=== PATIENT | male | born 1965 | race Caucasian/White ===

== ENCOUNTER 2017-08-08 15:54 | Inpatient (IN) | payer SELFPAY ==
[~2017-08-08] VITALS: Ht 177.8 cm; Wt 73.6 kg
[~2017-08-08 15:54] MED LIST: DEPA500T PO
[2017-08-08 16:00] VITALS: BP 136/86; PULSE 75; RESP 16; TEMP 98.9; O2SAT 96
--- NOTE | 2017-08-08 16:34 | PD ---
HPI Chief Complaint: Psychiatric Symptoms Time Seen by Provider: 16:28 Travel History International Travel<30 days: No Contact w/Intl Traveler<30days: No Traveled to known affect area: No History of Present Illness HPI Patient is a 52-year-old male presenting to the emergency Department under Delacruz act for psychiatric evaluation. Patient states that he has a history of bipolar disorder and seizures. He has been off of his lithium for several days and wants it refilled. He states that he's had several beers today, the beers "help him to not kill anybody". Patient admits to drinking alcohol on a daily basis. Patient appears intoxicated. He denies any visual or auditory hallucinations. PFSH Past Medical History Bipolar Disorder: Yes Anxiety: Yes Hypertension: Yes Neurologic: Yes (per [facility] info - bipolar) Psychiatric: Yes (bipolar/schizophrenia) Schizophrenia: Yes Seizures: Yes Past Surgical History Body Medical Devices: Patient is non-compliant with meds, thoughts not rational Social History Alcohol Use: Yes Tobacco Use: Yes Substance Use: No (Patient is non-compliant with meds, thoughts not rational) Allergies-Medications (Allergen,Severity, Reaction): Coded Allergies: No Known Allergies (Unverified , 07/01/16) Reported Meds & Prescriptions Reported Meds & Active Scripts Active Reported Depakote 500 mg (Divalproex Sodium) 500 Mg Tab 500 Tab PO BID Review of Systems Except as stated in HPI: all other systems reviewed are Neg Psychiatric: Positive: Mood Disorder, Substance Abuse, Homicidal Ideation Physical Exam Narrative GENERAL: Well-developed, well-nourished, intoxicated-appearing male. SKIN: Warm and dry. HEAD: Atraumatic. Normocephalic. EYES: Pupils equal and round. No scleral icterus. No injection or drainage. ENT: No nasal bleeding or discharge. Mucous membranes pink and moist. NECK: Trachea midline. No JVD. CARDIOVASCULAR: Regular rate and rhythm. RESPIRATORY: No accessory muscle use. Clear to auscultation. Breath sounds equal bilaterally. GASTROINTESTINAL: Abdomen soft, non-tender, nondistended. Hepatic and splenic margins not palpable. MUSCULOSKELETAL: Extremities without clubbing, cyanosis, or edema. No obvious deformities. NEUROLOGICAL: Awake and alert. No obvious cranial nerve deficits. Motor grossly within normal limits. Five out of 5 muscle strength in the arms and legs. Normal speech. PSYCHIATRIC: Appropriate mood and affect; insight and judgment impaired. Patient is aggressive verbally Data Data Last Documented VS Vital Signs Date Time Temp Pulse Resp B/P (MAP) Pulse Ox O2 Delivery O2 Flow Rate FiO2 08/08/17 16:00 98.9 75 16 136/86 (103) 96 Orders Orders Complete Blood Count With Diff (08/08/17 16:07) Comprehensive Metabolic Panel (08/08/17 16:07) Psych Screen (08/08/17 16:07) Drug Screen, Random Urine (08/08/17 16:07) Alcohol (Ethanol) (08/08/17 16:07) MDM Medical Decision Making Medical Screen Exam Complete: Yes Emergency Medical Condition: Yes Medical Record Reviewed: Yes Interpretation(s) Vital Signs Date Time Temp Pulse Resp B/P (MAP) Pulse Ox O2 Delivery O2 Flow Rate FiO2 08/08/17 16:00 98.9 75 16 136/86 (103) 96 Differential Diagnosis Mood disorder versus substance abuse versus metabolic abnormality versus homicidal ideations versus other Narrative Course Patient was seen and evaluated in the ambulance call. He is intoxicated per his own report. He smells of alcohol. He is being verbally aggressive stating that he's been here for 30 minutes and has not gotten his medication yet. Patient's vital signs are stable. Mental health screening discussed with the patient. Psychiatric screen ordered. Care of patient transferred to Rosanne SERRANO will determine patient's disposition Claudia Pat Aug 08, 2017 16:34
--- NOTE | 2017-08-08 16:53 | PD ---
Physical Exam Date Seen by Provider: Aug 08, 2017 Time Seen by Provider: 17:57 Narrative Patient was seen by POLINA Perdue. Please refer to her note for details of H&P. Data Data Last Documented VS Vital Signs Date Time Temp Pulse Resp B/P (MAP) Pulse Ox O2 Delivery O2 Flow Rate FiO2 08/08/17 16:00 98.9 75 16 136/86 (103) 96 Orders Orders Complete Blood Count With Diff (08/08/17 16:07) Comprehensive Metabolic Panel (08/08/17 16:07) Psych Screen (08/08/17 16:07) Drug Screen, Random Urine (08/08/17 16:07) Alcohol (Ethanol) (08/08/17 16:07) Labs Laboratory Tests Test 08/08/17 17:00 White Blood Count 4.6 TH/MM3 Red Blood Count 4.52 MIL/MM3 Hemoglobin 15.2 GM/DL Hematocrit 45.4 % Mean Corpuscular Volume 100.5 FL Mean Corpuscular Hemoglobin 33.5 PG Mean Corpuscular Hemoglobin Concent 33.4 % Red Cell Distribution Width 13.6 % Platelet Count 259 TH/MM3 Mean Platelet Volume 7.7 FL Neutrophils (%) (Auto) 46.0 % Lymphocytes (%) (Auto) 42.7 % Monocytes (%) (Auto) 9.3 % Eosinophils (%) (Auto) 1.4 % Basophils (%) (Auto) 0.6 % Neutrophils # (Auto) 2.1 TH/MM3 Lymphocytes # (Auto) 2.0 TH/MM3 Monocytes # (Auto) 0.4 TH/MM3 Eosinophils # (Auto) 0.1 TH/MM3 Basophils # (Auto) 0.0 TH/MM3 CBC Comment DIFF FINAL Differential Comment Blood Urea Nitrogen 5 MG/DL Creatinine 0.72 MG/DL Random Glucose 73 MG/DL Total Protein 7.3 GM/DL Albumin 3.6 GM/DL Calcium Level 8.5 MG/DL Alkaline Phosphatase 81 U/L Aspartate Amino Transf (AST/SGOT) 15 U/L Alanine Aminotransferase (ALT/SGPT) 17 U/L Total Bilirubin 0.3 MG/DL Sodium Level 140 MEQ/L Potassium Level 3.9 MEQ/L Chloride Level 106 MEQ/L Carbon Dioxide Level 28.2 MEQ/L Anion Gap 6 MEQ/L Estimat Glomerular Filtration Rate 114 ML/MIN Ethyl Alcohol Level 138 MG/DL [facility] Medical Record Reviewed: Yes Supervised Visit with MATIAS: No Differential Diagnosis bipolar disorder, drug induced mood disorder, substance abuse Narrative Course 52 yr old male here under BA. Labs have been reviewed and patient medically cleared for psych screen. Diagnosis Primary Impression: Bipolar disorder Qualified Codes: F31.9 - Bipolar disorder, unspecified Condition: Stable Rosanne Ellison Aug 08, 2017 16:53
[2017-08-08 17:20] LABS: AUTOMATED NEUTROPHIL # 2.1 TH/MM3 (1.8-7.7); BASOPHIL % 0.6 % (0.0-2.0); EOSINOPHIL # 0.1 TH/MM3 (0-0.4); EOSINOPHIL % 1.4 % (0.0-4.0); HEMATOCRIT 45.4 % (39.0-51.0); HEMO FLAGS DIFF FINAL; LYMPH % 42.7 % (9.0-44.0); MEAN CELL VOLUME 100.5 FL (80.0-100.0); MEAN CORPUSCULAR HEMOGLOBIN 33.5 PG (27.0-34.0); MEAN CORPUSCULAR HGB CONC 33.4 % (32.0-36.0); MONO % 9.3 % (0.0-8.0); PLATELET COUNT 259 TH/MM3 (150-450); RED BLOOD COUNT 4.52 MIL/MM3 (4.50-5.90); RED CELL DISTRIBUTION WIDTH 13.6 % (11.6-17.2); WHITE BLOOD COUNT 4.6 TH/MM3 (4.0-11.0)
[2017-08-08 17:38] LABS: ALT (GPT) 17 U/L (12-78); ANION GAP 6 MEQ/L (5-15); AST (GOT) 15 U/L (15-37); BICARBONATE 28.2 MEQ/L (21.0-32.0); CHLORIDE 106 MEQ/L (98-107); GLOMERULAR FILTRATION RATE 114 ML/MIN (>89); POTASSIUM 3.9 MEQ/L (3.5-5.1); SODIUM (NA) 140 MEQ/L (136-145)
[2017-08-08 17:40] LABS: ALCOHOL 138 MG/DL (0-5); ALKALINE PHOSPHATASE 81 U/L (45-117); BLOOD UREA NITROGEN 5 MG/DL (7-18); TOTAL BILIRUBIN ADULT 0.3 MG/DL (0.2-1.0)
[2017-08-08] MEDS ORDERED: LITH600C PO (18:26)
[2017-08-08] MEDS ORDERED: LORazepam 2 MG/ML VIAL IM ONE (19:30)
[2017-08-08 19:31] VITALS: BP 163/81; PULSE 72; RESP 20; O2SAT 100
[2017-08-08] MEDS ORDERED: FLUMAZENIL 0.5 MG/5 ML VIAL IV PUSH PRN (20:30)
[2017-08-08] MEDS ORDERED: LORazepam 1 MG TAB PO PRN (20:30)
[2017-08-08] MEDS ORDERED: LORazepam 2 MG/ML VIAL IV PUSH PRN ×4 (20:30)
[2017-08-08 20:50] VITALS: BP 170/97; PULSE 88; RESP 16; O2SAT 88
[2017-08-08 22:00] VITALS: BP 138/65; PULSE 83; RESP 19; O2SAT 93
[2017-08-09 02:07] VITALS: BP 142/73; PULSE 65; RESP 18; O2SAT 96
--- NOTE | 2017-08-09 09:40 | PD ---
History of Present Illness Chief Complaint: Psychiatric Symptoms Time Seen by Provider: 09:25 Travel History International Travel<30 Days: No Contact w/Intl Traveler<30days: No Known affected area: No Legal Status Legal Status: Delacruz Act Delacruz Act Signed By: POLINA Stout at [facility] History of Present Illness: History of Present Illness Patient is a 52-year-old male with history of bipolar disorder and alcohol abuse, seizures who presents to [facility] under a Delacruz act initiated by POLINA Stout at [facility]. The Delacruz act states " Landon has had recent increase in stressors. He is labile. He states he needs to go to the hospital. I can't take it anymore. I am done with everything. He is crying and very upset ". He informed the ED provider that he needed to have his lithium refilled and that he was drinking because " the beers "help me to not kill anybody". He appeared intoxicated and his BAL on arrival was 138. EMR reviewed. The patient has had 2 previous visits to ED for ETOH related issues with last visit in 2016. Patient is alert, oriented. he is irritable and quickly becomes agitated . He begins to hit himself on the head and slap his face. he is talking in a very loud tone a. States " I just want my fucking medication" but refuses to provide any other information and refuses to answer any questions. he then states " I know what I have to do cut my self". " If I was a fucking n I would be getting the help". He is not re directable and then states " I'm just not going to answer any questions". . PFSH Past Medical History Bipolar Disorder: Yes Anxiety: Yes Hypertension: Yes Neurologic: Yes (per [facility] info - bipolar) Psychiatric: Yes (bipolar/schizophrenia) Schizophrenia: Yes Seizures: Yes Past Surgical History Body Medical Devices: Patient is non-compliant with meds, thoughts not rational Psychiatric History Psychiatric History Hx Psychiatric Treatment: Bipolar disorder He deneis any inpatietn treatmetn. Follows up at [facility] outpatient History of Inpatient Treatment: No Guns or firearms in home: No (Did not answer) Social History Patient refused to provide any information Hx Alcohol Use: Yes Hx Tobacco Use: Yes Hx Substance Use: Yes (2 ppd smoker, ETOH--4 16oz. beers daily) Substance Use Type: Alcohol, Nicotine/Cigarettes Other Substances Used: Pt. states, "I'm an alcoholic, but I don't want treatment. I'm fine." Hx of Substance Use Treatment: No Family Psychiatric History Unknown Allergies-Medications (Allergen,Severity, Reaction): Coded Allergies: No Known Allergies (Unverified , 07/01/16) Reported Meds & Prescriptions Reported Meds & Active Scripts Active Reported [place] Carbonate 600 Mg Cap 600 Mg PO HS Review of Systems ROS Limitations: Uncooperative, Refused Exam Alert: Yes Landing: Person, Place Mood: Agitated Affect: Labile Speech: Clear (Loud, yelling, threatning) Eye Contact: Indirect Memory Intact: Comment (Unable to test) Hallucinations: Other (Does not appear to be) Delusions: No Suicidal: Ideation (Threatened to cut his arm) Homicidal: Ideation (Unable to assess as he refuses to answer) Insight/Judgement Poor. Poor MDM Medical Decision Making Medical Record Reviewed: Yes Assessment/Plan Patient is a 52-year-old male with history of bipolar disorder and alcohol abuse, seizures who presents to [facility] under a Delacruz act initiated by POLINA Stout at [facility]. The Delacruz act states " Landon has had recent increase in stressors. He is labile. He states he needs to go to the hospital. I can't take it anymore. I am done with everything. He is crying and very upset ". He informed the ED provider that he needed to have his lithium refilled and that he was drinking because " the beers "help me to not kill anybody". He appeared intoxicated and his BAL on arrival was 138. Patient exhibits agitation, lability of mood, threatens to cut himself demands to be given medication but refuses to answer any questions so that I can complete an evaluation. Patient at this time presents a risk to self or others and meets criteria for inpatient treatment for safety, further evaluation and stability . Orders Orders Complete Blood Count With Diff (08/08/17 16:07) Comprehensive Metabolic Panel (08/08/17 16:07) Psych Screen (08/08/17 16:07) Drug Screen, Random Urine (08/08/17 16:07) Alcohol (Ethanol) (08/08/17 16:07) Lorazepam Inj (Ativan Inj) (08/08/17 19:30) Restraints Violent (08/08/17:17) Alcohol Withdrawal Asmt-Ciwa ONCE (08/08/17 20:26) Flumazenil Inj (Romazicon Inj) (08/08/17 20:30) Lorazepam (Ativan) (08/08/17 20:30) Lorazepam Inj (Ativan Inj) (08/08/17 20:30) Lorazepam (Ativan) (08/08/17 20:30) Lorazepam Inj (Ativan Inj) (08/08/17 20:30) Lorazepam Inj (Ativan Inj) (08/08/17 20:30) Lorazepam Inj (Ativan Inj) (08/08/17 20:30) Diet Regular Basic (08/09/17 Breakfast) Admit To Inpatient (08/09/17 ) Basic Metabolic Panel (Bmp) (08/10/17 06:00) Lipid Profile (08/10/17 06:00) Hemoglobin (Hgb) A1c (08/10/17 06:00) Prolactin (08/10/17 06:00) Vital Signs (Pediatrics) [id number].E (08/09/17 08:49) Instruction (08/09/17 08:49) Electrocardiogram (08/09/17 ) Results Vital Signs Date Time Temp Pulse Resp B/P (MAP) Pulse Ox O2 Delivery O2 Flow Rate FiO2 08/09/17 02:07 65 18 142/73 (96) 96 Room Air 08/08/17 22:00 83 19 138/65 (89) 93 Room Air 08/08/17 20:50 88 16 170/97 (121) 88 Room Air 08/08/17 19:31 72 20 163/81 (108) 100 Room Air 08/08/17 16:00 98.9 75 16 136/86 (103) 96 Laboratory Tests Test 08/08/17 17:00 08/08/17 18:20 White Blood Count 4.6 Red Blood Count 4.52 Hemoglobin 15.2 Hematocrit 45.4 Mean Corpuscular Volume 100.5 Mean Corpuscular Hemoglobin 33.5 Mean Corpuscular Hemoglobin Concent 33.4 Red Cell Distribution Width 13.6 Platelet Count 259 Mean Platelet Volume 7.7 Neutrophils (%) (Auto) 46.0 Lymphocytes (%) (Auto) 42.7 Monocytes (%) (Auto) 9.3 Eosinophils (%) (Auto) 1.4 Basophils (%) (Auto) 0.6 Neutrophils # (Auto) 2.1 Lymphocytes # (Auto) 2.0 Monocytes # (Auto) 0.4 Eosinophils # (Auto) 0.1 Basophils # (Auto) 0.0 CBC Comment DIFF FINAL Differential Comment Blood Urea Nitrogen 5 Creatinine 0.72 Random Glucose 73 Total Protein 7.3 Albumin 3.6 Calcium Level 8.5 Alkaline Phosphatase 81 Aspartate Amino Transf (AST/SGOT) 15 Alanine Aminotransferase (ALT/SGPT) 17 Total Bilirubin 0.3 Sodium Level 140 Potassium Level 3.9 Chloride Level 106 Carbon Dioxide Level 28.2 Anion Gap 6 Estimat Glomerular Filtration Rate 114 Ethyl Alcohol Level 138 Urine Opiates Screen NEG Urine Barbiturates Screen NEG Urine Amphetamines Screen NEG Urine Benzodiazepines Screen NEG Urine Cocaine Screen NEG Urine Cannabinoids Screen NEG Diagnosis Primary Impression: Bipolar disorder Additional Impression: Alcohol abuse Admitting Information Admitting Physician Requests: Admit Condition: Stable Problem Qualifiers Primary Impression: Bipolar disorder Qualified Codes: F31.0 - Bipolar disorder, current episode hypomanic Kellen Claire Aug 09, 2017 09:40
[2017-08-09] MEDS ORDERED: MAGNESIUM HYDROXIDE SUSP 30 ML CUP PO PRN (10:00)
[2017-08-09] MEDS ORDERED: ALUMINUM/MAGNESIUM/SIMETH 30 ML CUP PO PRN (10:00)
[2017-08-09 12:54] VITALS: BP 189/96; PULSE 80; RESP 16; TEMP 96.2; O2SAT 97
[2017-08-09] MEDS ORDERED: LISINOPRIL 10 MG TAB PO ONE (13:00)
[2017-08-09] MEDS ORDERED: NAPROXEN 500 MG TAB PO ONE (13:00)
[2017-08-09] MEDS: NICOTINE 21 MG/24 HR PATCH T-DERMAL SCH (13:05)
[2017-08-09 14:00] VITALS: BP 160/88; PULSE 80; RESP 20; TEMP 98.8; O2SAT 97
[2017-08-09] MEDS: LORazepam 2 MG TAB PO PRN ×2 (17:30→23:46)
[2017-08-09] MEDS ORDERED: PHENYTOIN SODIUM 100 MG CAP PO ONE (19:00)
[2017-08-09] MEDS: ACETAMINOPHEN 325 MG TAB PO PRN (23:46)
[2017-08-10 06:09] VITALS: BP 147/70; PULSE 69; RESP 18; TEMP 98.1; O2SAT 97
[2017-08-10] MEDS ORDERED: PHENYTOIN SODIUM 100 MG CAP PO SCH ×2 (09:00→21:00)
[2017-08-10] MEDS ORDERED: REMOVE OLD PATCH T-DERMAL SCH (09:00)
[2017-08-10] MEDS: NICOTINE 21 MG/24 HR PATCH T-DERMAL SCH (09:07)
[2017-08-10] MEDS ORDERED: VITA100T54 PO (09:39)
[2017-08-10] MEDS ORDERED: FOLI1TAB6 PO (09:39)
[2017-08-10] MEDS ORDERED: DILA100C PO (09:39)
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
--- NOTE | 2017-08-10 10:24 | RADRPT ---
EXAM DATE/TIME: 08/10/2017 09:56 [facility] COMPARISON: No previous studies available for comparison. INDICATIONS : Fall three days ago. MEDICAL HISTORY : None. SURGICAL HISTORY : None. ENCOUNTER: Initial ACUITY: 3 days PAIN SCORE: 10/10 LOCATION: Bilateral Middle of back FINDINGS: There is normal alignment of the thoracic vertebral bodies. Mild degenerative changes are noted. Ve rtebral body height is maintained. No evidence of fracture or subluxation. Pedicles are intact at a ll levels. The paravertebral reflections are not thickened. CONCLUSION: Mild degenerative changes. Vincent Bowers MD FACR on August 10, 2017 at 10:22 Board Certified Radiologist. This report was verified electronically.
--- NOTE | 2017-08-10 10:25 | RADRPT ---
EXAM DATE/TIME: 08/10/2017 10:00 [facility] COMPARISON: No previous studies available for comparison. INDICATIONS : Fall three days ago. MEDICAL HISTORY : None. SURGICAL HISTORY : None. ENCOUNTER: Initial ACUITY: 3 days PAIN SCORE: 10/10 LOCATION: Bilateral Middle of back FINDINGS: Two view examination was performed. There are five non-rib bearing vertebral bodies. The vertebral bodies are in normal alignment without evidence of subluxation or scoliosis. Loss of disc space heig ht L5-S1 with mild facet disease. The pedicles are intact. Bony mineralization is normal. No fract ure is identified. CONCLUSION: Mild degenerative changes L5-S1. Vincent Bowers MD FACR on August 10, 2017 at 10:23 Board Certified Radiologist. This report was verified electronically.
[2017-08-10] MEDS: ACETAMINOPHEN 325 MG TAB PO PRN (11:08)
== END 2017-08-10 13:45 | disposition home or self-care (01) | DRG 897 ==
LOC: NEPD 15:54 → NEDA 08-09 09:58 → H270 08-09 14:00
PROVIDERS: ADMIT Psychiatry & Neurology Psychiatry; ATTEND Psychiatry & Neurology Psychiatry
DX: F10.229 Alcohol dependence with intoxication, unspecified (principal); F31.9 Bipolar disorder, unspecified; I10 Essential (primary) hypertension; Z59.0 Homelessness; G40.909 Epilepsy, unspecified, not intractable, without status epilepticus; F60.2 Antisocial personality disorder; Y90.6 Blood alcohol level of 120-199 mg/100 ml; Z91.14 Patient's other noncompliance with medication regimen; F17.210 Nicotine dependence, cigarettes, uncomplicated
CPT/HCPCS: 72072; 72100; 80053; 80307; 85025; 96372; J2060

== ENCOUNTER 2017-08-19 13:20 | Emergency (ER) | payer OTHER ==
[~2017-08-19] VITALS: Ht 177.8 cm; Wt 75.0 kg
[~2017-08-19 13:20] MED LIST changes: -DEPA500T PO; +DILA100C PO; +FOLI1TAB6 PO; +LITH600C PO; +VITA100T54 PO
[2017-08-19 13:30] VITALS: BP 132/88; PULSE 76; RESP 18; TEMP 97.8; O2SAT 98
[2017-08-19] MEDS ORDERED: PHENYTOIN SODIUM 100 MG CAP PO ONE (14:00)
[2017-08-19] MEDS ORDERED: LITHIUM CARBONATE 300 MG TAB PO ONE (14:00)
--- NOTE | 2017-08-19 14:04 | PD ---
HPI Chief Complaint: Psychiatric Symptoms Time Seen by Provider: 13:42 Travel History International Travel<30 days: No Contact w/Intl Traveler<30days: No Traveled to known affect area: No History of Present Illness HPI 52-year-old male that presents to the ED for evaluation of psych. Patient has a chronic history of bipolar disorder as well as seizure disorder. Patient is also known alcoholic and drinks every day. Patient had 2 drinks today. Patient went to his doctor today who Delacruz acted him because of suicidal ideation. Per patient he wanted to get Delacruz acted secondary to get his medications. 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 He denies any chest pain or shortness of breath. No trauma. No cuts. He states that he takes lithium and Dilantin and has not had any in at least a couple of weeks. Per patient he had a seizure about a week ago. No other medical issues. No plan. But per patient suicidal. No homicidal. PFSH Past Medical History Bipolar Disorder: Yes Anxiety: Yes Hypertension: Yes Musculoskeletal: Yes (Patient is non-compliant with meds, thoughts not rational ) Neurologic: Yes (per fdc info - bipolar) Psychiatric: Yes (bipolar/schizophrenia) Respiratory: No (Patient is non-compliant with meds, thoughts not rational) Schizophrenia: Yes Seizures: Yes Past Surgical History Body Medical Devices: Patient is non-compliant with meds, thoughts not rational Social History Alcohol Use: Yes Tobacco Use: Yes Substance Use: Yes (2 ppd smoker, ETOH--4 16oz. beers daily) Allergies-Medications (Allergen,Severity, Reaction): Coded Allergies: No Known Allergies (Unverified , 07/01/16) Reported Meds & Prescriptions Reported Meds & Active Scripts Active Folic Acid 1 Mg Tablet 1 Mg PO DAILY 15 Days Vitamin B-1 (Thiamine HCl) 100 Mg Tab 100 Mg PO DAILY 15 Days Dilantin (Phenytoin Extended) 100 Mg Cap 100 Mg PO TID 15 Days Reported [place] Carbonate 600 Mg Cap 600 Mg PO HS Review of Systems Except as stated in HPI: all other systems reviewed are Neg Physical Exam Narrative GENERAL: SKIN: Warm and dry. HEAD: Atraumatic. Normocephalic. EYES: Pupils equal and round. No scleral icterus. No injection or drainage. ENT: No nasal bleeding or discharge. Mucous membranes pink and moist. Tongue is midline. No uvula deviation. NECK: Trachea midline. No JVD. CARDIOVASCULAR: Regular rate and rhythm. No murmurs, S3, S4. RESPIRATORY: No accessory muscle use. Clear to auscultation. Breath sounds equal bilaterally. GASTROINTESTINAL: Abdomen soft, non-tender, nondistended. Hepatic and splenic margins not palpable. MUSCULOSKELETAL: Extremities without clubbing, cyanosis, or edema. No obvious deformities. Full range of motion of the upper and lower extremities bilaterally. 2+ pulses bilaterally. NEUROLOGICAL: Awake and alert. No obvious cranial nerve deficits. Motor grossly within normal limits. Five out of 5 muscle strength in the arms and legs. Normal speech. PSYCHIATRIC: Appropriate mood and affect; insight and judgment normal. Data Data Orders Orders Complete Blood Count With Diff (08/19/17 13:36) Comprehensive Metabolic Panel (08/19/17 13:36) Urinalysis - C+S If Indicated (08/19/17 13:36) Psych Screen (08/19/17 13:36) Belen (Li) (08/19/17 13:36) Drug Screen, Random Urine (08/19/17 13:36) Alcohol (Ethanol) (08/19/17 13:36) Salicylates (Aspirin) (08/19/17 13:36) Tylenol (Acetaminophen) (08/19/17 13:36) Phenytoin (Dilantin) (08/19/17 14:00) [place] Carbonate (Lithotabs) (08/19/17 14:00) Phenytoin (Dilantin) (08/19/17 13:55) MDM Medical Decision Making Medical Screen Exam Complete: Yes Emergency Medical Condition: Yes Medical Record Reviewed: Yes Differential Diagnosis Depression versus suicidal ideation versus anxiety versus adjustment disorder versus mood disorder versus bipolar disorder versus schizophrenia versus paranoid disorder versus psychosis versus substance abuse versus alcohol abuse versus alcohol induced psychosis versus homicidality addition versus cutting versus personality disorder Narrative Course 52-year-old male that presents to the ED for evaluation of psych. Patient was properly examined and was found to have signs and symptoms consistent with psychiatric illness. No sign of acute medical distress. Labs were drawn. Patient was given Dilantin as well as lithium here as per patient his been out of his medications. Patient was medically clear. Okay to be seen by psych. Mental health screening was discussed with the patient. Diagnosis Primary Impression: Bipolar disorder Qualified Codes: F31.31 - Bipolar disorder, current episode depressed, mild Richie Peraza Aug 19, 2017 14:04
[2017-08-19 16:45] LABS: BLOOD, URINE NEG (NEG); COMMENT (UR) CULT NOT INDICATED; CULTURE IF INDICATED CULT NOT INDICATED; GLUCOSE,URINE NEG (NEG); KETONE, URINE NEG (NEG); NITRITE,URINE NEG (NEG); SQUAMOUS EPITHELIAL CELL URINE <1 /hpf (0-5); URINE COLOR LIGHT-YELLOW (YELLW/STRAW)
[2017-08-19 16:57] LABS: ALKALINE PHOSPHATASE 98 U/L (45-117); TOTAL BILIRUBIN ADULT 0.3 MG/DL (0.2-1.0)
[2017-08-19 17:11] LABS: ACETAMINOPHEN LESS THAN 2.0 MCG/ML (10.0-30.0); ALCOHOL LESS THAN 3 MG/DL (0-5); ALT (GPT) 19 U/L (12-78); ANION GAP 6 MEQ/L (5-15); AST (GOT) 20 U/L (15-37); BICARBONATE 27.8 MEQ/L (21.0-32.0); BLOOD UREA NITROGEN 9 MG/DL (7-18); CHLORIDE 104 MEQ/L (98-107); GLOMERULAR FILTRATION RATE 135 ML/MIN (>89); SODIUM (NA) 138 MEQ/L (136-145)
[2017-08-19 18:03] VITALS: BP 194/93; PULSE 70; RESP 17; TEMP 98.4; O2SAT 99
[2017-08-19 18:16] LABS: AUTOMATED NEUTROPHIL # 4.3 TH/MM3 (1.8-7.7); BASOPHIL # 0.1 TH/MM3 (0-0.2); BASOPHIL % 1.2 % (0.0-2.0); EOSINOPHIL # 0.2 TH/MM3 (0-0.4); EOSINOPHIL % 1.9 % (0.0-4.0); HEMATOCRIT 48.2 % (39.0-51.0); HEMO FLAGS DIFF FINAL; LYMPHOCYTE # 2.6 TH/MM3 (1.0-4.8); MEAN CELL VOLUME 100.1 FL (80.0-100.0); MEAN CORPUSCULAR HEMOGLOBIN 32.7 PG (27.0-34.0); MEAN CORPUSCULAR HGB CONC 32.7 % (32.0-36.0); MONO % 10.3 % (0.0-8.0); NEUT % 54.6 % (16.0-70.0); PLATELET COUNT 375 TH/MM3 (150-450); RED BLOOD COUNT 4.81 MIL/MM3 (4.50-5.90); RED CELL DISTRIBUTION WIDTH 13.3 % (11.6-17.2)
[2017-08-19 22:18] VITALS: BP 175/87; PULSE 80; RESP 15
[2017-08-20 02:14] VITALS: BP 186/93; PULSE 62; RESP 18; O2SAT 98
[2017-08-20 06:23] VITALS: BP_SYST 180; BP_SYST 182; BP_DIAS 100; BP_DIAS 116; PULSE 79; RESP 18
[2017-08-20] MEDS ORDERED: LISINOPRIL 10 MG TAB PO ONE (06:45)
--- NOTE | 2017-08-20 14:50 | PD ---
Physical Exam Date Seen by Provider: Aug 20, 2017 Time Seen by Provider: 14:49 Narrative Patient previously Delacruz acted and medically cleared was cleared by psychiatrist for discharge. Patient medically stable for discharge. Patient to follow-up as stated in the psychiatry note. Data Data Last Documented VS Vital Signs Date Time Temp Pulse Resp B/P (MAP) Pulse Ox O2 Delivery O2 Flow Rate FiO2 08/20/17 06:23 79 18 182/116 (138) 180/100 (126) 08/20/17 02:14 98 08/19/17 18:03 98.4 Room Air Orders Orders Complete Blood Count With Diff (08/19/17 13:36) Comprehensive Metabolic Panel (08/19/17 13:36) Urinalysis - C+S If Indicated (08/19/17 13:36) Psych Screen (08/19/17 13:36) [place] (Li) (08/19/17 13:36) Drug Screen, Random Urine (08/19/17 13:36) Alcohol (Ethanol) (08/19/17 13:36) Salicylates (Aspirin) (08/19/17 13:36) Tylenol (Acetaminophen) (08/19/17 13:36) Phenytoin (Dilantin) (08/19/17 14:00) [place] Carbonate (Lithotabs) (08/19/17 14:00) Phenytoin (Dilantin) (08/19/17 13:55) Diet Regular Basic (08/19/17 Dinner) Diet Regular Basic (08/20/17 Breakfast) Lisinopril (Prinivil) (08/20/17 06:45) Diet Regular Basic (08/20/17 Lunch) Labs Laboratory Tests Test 08/19/17 14:40 08/19/17 16:09 08/19/17 17:45 Blood Urea Nitrogen 9 MG/DL Creatinine 0.62 MG/DL Random Glucose 61 MG/DL Total Protein 7.5 GM/DL Albumin 3.6 GM/DL Calcium Level 8.9 MG/DL Alkaline Phosphatase 98 U/L Aspartate Amino Transf (AST/SGOT) 20 U/L Alanine Aminotransferase (ALT/SGPT) 19 U/L Total Bilirubin 0.3 MG/DL Sodium Level 138 MEQ/L Potassium Level 5.0 MEQ/L Chloride Level 104 MEQ/L Carbon Dioxide Level 27.8 MEQ/L Anion Gap 6 MEQ/L Estimat Glomerular Filtration Rate 135 ML/MIN Salicylates Level 3.4 MG/DL Acetaminophen Level LESS THAN 2.0 MCG/ML Phenytoin (Dilantin) Level LESS THAN 0.4 MCG/ML Ethyl Alcohol Level LESS THAN 3 MG/DL Urine Color LIGHT-YELLOW Urine Turbidity CLEAR Urine pH 7.0 Urine Specific [place] 1.003 Urine Protein NEG mg/dL Urine Glucose (UA) NEG mg/dL Urine Ketones NEG mg/dL Urine Occult Blood NEG Urine Nitrite NEG Urine Bilirubin NEG Urine Urobilinogen LESS THAN 2.0 MG/DL Urine Leukocyte Esterase NEG Urine Squamous Epithelial Cells <1 /hpf Microscopic Urinalysis Comment CULT NOT INDICATED Urine Opiates Screen NEG Urine Barbiturates Screen NEG Urine Amphetamines Screen NEG Urine Benzodiazepines Screen NEG Urine Cocaine Screen NEG Urine Cannabinoids Screen NEG White Blood Count 8.0 TH/MM3 Red Blood Count 4.81 MIL/MM3 Hemoglobin 15.7 GM/DL Hematocrit 48.2 % Mean Corpuscular Volume 100.1 FL Mean Corpuscular Hemoglobin 32.7 PG Mean Corpuscular Hemoglobin Concent 32.7 % Red Cell Distribution Width 13.3 % Platelet Count 375 TH/MM3 Mean Platelet Volume 8.3 FL Neutrophils (%) (Auto) 54.6 % Lymphocytes (%) (Auto) 32.0 % Monocytes (%) (Auto) 10.3 % Eosinophils (%) (Auto) 1.9 % Basophils (%) (Auto) 1.2 % Neutrophils # (Auto) 4.3 TH/MM3 Lymphocytes # (Auto) 2.6 TH/MM3 Monocytes # (Auto) 0.8 TH/MM3 Eosinophils # (Auto) 0.2 TH/MM3 Basophils # (Auto) 0.1 TH/MM3 CBC Comment DIFF FINAL Differential Comment [place] Level MEQ/L [facility] Medical Record Reviewed: Yes Supervised Visit with MATIAS: Yes Narrative Course Patient previously Delacruz acted and medically cleared was cleared by psychiatrist for discharge. Patient medically stable for discharge. Patient to follow-up as stated in the psychiatry note. Diagnosis Primary Impression: Bipolar disorder Qualified Codes: F31.31 - Bipolar disorder, current episode depressed, mild Patient Instructions: General Instructions Additional Instruction: Patient previously Delacruz acted and medically cleared was cleared by psychiatrist for discharge. Patient medically stable for discharge. Patient to follow-up as stated in the psychiatry note. Disposition: 01 DISCHARGE HOME Condition: Stable Kameron Baldwin Aug 20, 2017 14:50
--- NOTE | 2017-08-20 15:05 | PD.PSY.CON ---
Provisional Diagnosis Admission Date [place]. Bipolar disorder current episode mixed mild f 31.61, history of alcohol abuse z 87.898 History of Present Illness Service Psychiatry Consult Requested By EDMD Reason for Consult Jayme gilliam Primary Care Physician No Primary Care Physician HPI Patient is a 52-year-old white male was hospitalized here briefly discharge on about 08/10/17 with documented prescriptions for Dilantin and lithium 15 days. Patient was follow-up through [facility]. It appears soon outfitter rhythm the past day or so looking to get his prescriptions filled he saw some clinician out there. It appears he might remain some sort about problems of there stating that we here at [place] like him his prescriptions hours medication. They stated that they were not willing to give him his Dilantin or lithium. He then asked that they Delacruz act him medication be sent back here to get these prescriptions there is a Delacruz act with them dated 08/19/17 at 9:30 AM signed by elton Jackson for some [place] at phone #[phone]. That document stating. He is making suicidal statements he states he does not feel safe. Patient is seen screened in the ED and toxicology negative blood alcohol level negative. Patient seen by me in his room with nurse Maureen. Patient is allowed angry demanding and entitled. Is quite profane with attempts at intimidating. I did review the EMR and patient was given prescriptions as mentioned above though he vehemently denies getting the prescriptions claims that we are liars and just want to kick him out of here. He does denies suicidality homicidality voices or visions. Then he states only wants to pain pill because she had a seizure some time in the past and is complaining of some pain in his back however he is able to stand up quickly twist around pull up his shirt and shows is back. I see no injury there and he does these movements quickly without any obvious signs of pain or restriction of motion. This I feel patient does not meet Delacruz criteria I'll lift the Jayme act allow the patient to be discharged from self however I will give him a repeat refill of his Dilantin 100 mg 3 times a day a 15 day supply so #45 with no refill and will give him also lithium carbonate 600 mg one at at bedtime #15 with no refill need a follow-up with [facility] Review of Systems Constitutional: DENIES: Diaphoretic episodes, Fatigue, Fever, Weight gain, Weight loss, Chills, Dizziness, Change in appetite, Night Sweats Endocrine: DENIES: Heat/cold intolerance, Polydipsia, Polyuria, Polyphagia Eyes: DENIES: Blurred vision, Diplopia, Eye inflammation, Eye pain, Vision loss , Photosensitivity, Double Vision Ears, nose, mouth, throat: DENIES: Tinnitus, Hearing loss, Vertigo, Nasal discharge, Oral lesions, Throat pain, Hoarseness, Ear Pain, Running Nose, Epistaxis, Sinus Pain, Toothache, Odynophagia Respiratory: DENIES: Apneas, Cough, Snoring, Wheezing, Hemoptysis, Sputum production, Shortness of breath Cardiovascular: DENIES: Chest pain, Palpitations, Syncope, Dyspnea on Exertion , PND, Lower Extremity Edema, Orthopnea, Claudication Gastrointestinal: DENIES: Abdominal pain, Black stools, Bloody stools, Constipation, Diarrhea, Nausea, Vomiting, Difficulty Swallowing, Anorexia Genitourinary: DENIES: Sexual dysfunction, Urinary frequency, Urinary incontinence, Urgency, Hematuria, Dysuria, Nocturia, Penile Discharge, Testicular Pain, Testicular Swelling Musculoskeletal: COMPLAINS OF: Back pain, DENIES: Joint pain, Muscle aches, Stiffness, Joint Swelling, Neck pain Integumentary: DENIES: Abnormal pigmentation, Nail changes, Pruritus, Rash Hematologic/lymphatic: DENIES: Bruising, Lymphadenopathy Immunologic/allergic: DENIES: Eczema, Urticaria Neurologic: DENIES: Abnormal gait, Headache, Localized weakness, Paresthesias, Seizures, Speech Problems, Tremor, Poor Balance Psychiatric: COMPLAINS OF: Agitation (there is also a degree of manipulation with this), DENIES: Anxiety, Confusion, Mood changes, Depression, Hallucinations , Suicidal Ideation, Homicidal Ideation, Delusions Past Family Social History Coded Allergies: No Known Allergies (Unverified , 07/01/16) Past Medical History Patient medically cleared ED Active Scripts Folic Acid (Folic Acid) 1 Mg Tablet, 1 MG PO DAILY for Nutritional Supplement for 15 Days, #15 TAB 1 Refill Prov:Minh Solares MD 08/10/17 Thiamine (Vitamin B-1) 100 Mg Tab, 100 MG PO DAILY for Nutritional Supplement for 15 Days, #15 TAB 1 Refill Prov:Minh Solares MD 08/10/17 Phenytoin Extended (Dilantin) 100 Mg Cap, 100 MG PO TID for Control Seizures for 15 Days, CAP 1 Refill Prov:Minh Solares MD 08/10/17 Reported Medications [place] Carbonate ([place] Carbonate) 600 Mg Cap, 600 MG PO HS, CAP 0 Refills 08/08/17 Family Psych History Unable to ascertain due to patient's resistance Social History Unable to ascertain due to patient's resistance Patient's Strengths (min. 2) Patient verbal labile access healthcare Physical Exam Patient seen screened in ED exam reviewed and agreed with Vital Signs Vital Signs Date Time Temp Pulse Resp B/P (MAP) Pulse Ox O2 Delivery O2 Flow Rate FiO2 08/20/17 06:23 79 18 182/116 (138) 180/100 (126) 08/20/17 02:14 98 08/19/17 18:03 98.4 Room Air Lab Results Test 08/19/17 16:09 08/19/17 17:45 Urine Color LIGHT-YELLOW Urine Turbidity CLEAR Urine pH 7.0 Urine Specific [place] 1.003 Urine Protein NEG mg/dL Urine Glucose (UA) NEG mg/dL Urine Ketones NEG mg/dL Urine Occult Blood NEG Urine Nitrite NEG Urine Bilirubin NEG Urine Urobilinogen LESS THAN 2.0 MG/DL Urine Leukocyte Esterase NEG Urine Squamous Epithelial Cells <1 /hpf Microscopic Urinalysis Comment CULT NOT INDICATED Urine Opiates Screen NEG Urine Barbiturates Screen NEG Urine Amphetamines Screen NEG Urine Benzodiazepines Screen NEG Urine Cocaine Screen NEG Urine Cannabinoids Screen NEG White Blood Count 8.0 TH/MM3 Red Blood Count 4.81 MIL/MM3 Hemoglobin 15.7 GM/DL Hematocrit 48.2 % Mean Corpuscular Volume 100.1 FL Mean Corpuscular Hemoglobin 32.7 PG Mean Corpuscular Hemoglobin Concent 32.7 % Red Cell Distribution Width 13.3 % Platelet Count 375 TH/MM3 Mean Platelet Volume 8.3 FL Neutrophils (%) (Auto) 54.6 % Lymphocytes (%) (Auto) 32.0 % Monocytes (%) (Auto) 10.3 % Eosinophils (%) (Auto) 1.9 % Basophils (%) (Auto) 1.2 % Neutrophils # (Auto) 4.3 TH/MM3 Lymphocytes # (Auto) 2.6 TH/MM3 Monocytes # (Auto) 0.8 TH/MM3 Eosinophils # (Auto) 0.2 TH/MM3 Basophils # (Auto) 0.1 TH/MM3 CBC Comment DIFF FINAL Differential Comment [place] Level MEQ/L Mental Status Examination Appearance: Appropriate, Disheveled, Malodorous (mildly) Consciousness: Alert Orientation: x4 Motor Activity: Normal gait Speech: Pressured, Rapid Language: Other (somewhat disorganized) Fund of Knowledge: Poor Attention and Concentration: Other (fair) Memory: Impaired Mood: Angry, Oppositional, Irritable, Manic Affect: Other (increase range and intensity) Thought Process & Associations: Linear Thought Content: Bizarre thinking Hallucination Type: None Delusion Type: None Suicidal Ideation: No Suicidal Plan: No Suicidal Intention: No Homicidal Ideation: No Homicidal Plan: No Homicidal Intention: No Insight: Poor Judgment: Poor Assessment & Plan Problem List: (1) Bipolar disorder ICD Codes: F31.9 - Bipolar disorder, unspecified Status: Acute (2) History of alcohol abuse ICD Codes: Z87.898 - Personal history of other specified conditions Assessment & Plan With this time patient does not meet Delacruz criteria will lift Delacruz act. Is okay by psych for discharge or medically clear and stable There is a marked degree of manipulation related to this. We will give him a repeat refill of his Dilantin and lithium for 15 days he to follow-up with Manish gilliam Discharge Planning See above Request HC Surrog/Guard Advoc?: No Problem Qualifiers (1) Bipolar disorder: Qualified Codes: F31.61 - Bipolar disorder, current episode mixed, mild Jovan Packer MD Aug 20, 2017 15:05
[2017-08-20] MEDS ORDERED: LITH600C PO (15:30)
[2017-08-20] MEDS ORDERED: DILA100C PO (15:30)
== END 2017-08-20 15:50 | disposition home or self-care (01) ==
LOC: NEPJ 13:20
DX: F31.9 Bipolar disorder, unspecified (principal); G40.909 Epilepsy, unspecified, not intractable, without status epilepticus; R45.851 Suicidal ideations; F41.9 Anxiety disorder, unspecified; I10 Essential (primary) hypertension; F17.200 Nicotine dependence, unspecified, uncomplicated; Z79.899 Other long term (current) drug therapy
CPT/HCPCS: 80053; 80178; 80185; 80307; 81001; 85025; 99284

== ENCOUNTER 2017-09-13 18:55 | Emergency (ER) | payer OTHER ==
[~2017-09-13] VITALS: Ht 177.8 cm; Wt 78.0 kg
[2017-09-13 19:03] VITALS: BP 188/91; PULSE 91; RESP 18; TEMP 97.9; O2SAT 96
[2017-09-13] MEDS ORDERED: DILA100C PO ×2 (19:12)
[2017-09-13 20:04] LABS: AUTOMATED NEUTROPHIL # 3.7 TH/MM3 (1.8-7.7); BASOPHIL % 0.6 % (0.0-2.0); EOSINOPHIL # 0.1 TH/MM3 (0-0.4); EOSINOPHIL % 2.2 % (0.0-4.0); HEMATOCRIT 41.7 % (39.0-51.0); HEMO FLAGS DIFF FINAL; LYMPH % 29.9 % (9.0-44.0); MEAN CELL VOLUME 96.8 FL (80.0-100.0); MEAN CORPUSCULAR HGB CONC 34.1 % (32.0-36.0); NEUT % 56.3 % (16.0-70.0); PLATELET COUNT 285 TH/MM3 (150-450); RED BLOOD COUNT 4.31 MIL/MM3 (4.50-5.90); RED CELL DISTRIBUTION WIDTH 12.9 % (11.6-17.2); WHITE BLOOD COUNT 6.6 TH/MM3 (4.0-11.0)
[2017-09-13 20:27] LABS: ANION GAP 7 MEQ/L (5-15); AST (GOT) 18 U/L (15-37); BICARBONATE 26.7 MEQ/L (21.0-32.0); BLOOD UREA NITROGEN 10 MG/DL (7-18); CHLORIDE 103 MEQ/L (98-107); GLOMERULAR FILTRATION RATE 107 ML/MIN (>89); SODIUM (NA) 137 MEQ/L (136-145)
[2017-09-13 20:28] LABS: ALT (GPT) 19 U/L (12-78)
[2017-09-13 20:31] LABS: ALKALINE PHOSPHATASE 87 U/L (45-117); TOTAL BILIRUBIN ADULT 0.3 MG/DL (0.2-1.0)
--- NOTE | 2017-09-13 20:41 | RADRPT ---
EXAM DATE/TIME: 09/13/2017 20:16 [place] COMPARISON: No previous studies available for comparison. INDICATIONS : Left rib pain after fall from seizure. MEDICAL HISTORY : None. SURGICAL HISTORY : None. ENCOUNTER: Initial ACUITY: 1 week PAIN SCORE: 10/10 LOCATION: Left axillary ribs. FINDINGS: Multiple views of the left ribs were performed. There is no evidence of displaced fracture. No dest ructive lesions or areas of periosteal thickening are seen. There are multiple old healed left rib f ractures. Includes the seventh and eighth posterior lateral ribs and third posterior left rib Expirat ory view of the chest is negative for pneumothorax. The mediastinal structures are midline. CONCLUSION: Old fracture deformities with no acute fracture or pneumothorax. Tyron Mcpherson MD on September 13, 2017 at 20:38 Board Certified Radiologist. This report was verified electronically.
[2017-09-13 20:47] LABS: ACETAMINOPHEN LESS THAN 2.0 MCG/ML (10.0-30.0); ALCOHOL LESS THAN 3 MG/DL (0-5)
--- NOTE | 2017-09-13 20:50 | PD ---
HPI Chief Complaint: Psychiatric Symptoms Time Seen by Provider: 19:19 Travel History International Travel<30 days: No Contact w/Intl Traveler<30days: No Traveled to known affect area: No History of Present Illness HPI 52 yo male that presents to the ED for evaluation of Jayme gilliam. Patient has a history of bipolar disorder and has been here for the same in the past. Apparently patient told police that he wanted to kill himself by taking all his pills. He says that he feels suicidal. Per patient she's not been taking his lithium for a couple of weeks. He is also supposed to be taking some blood pressure medication but has not taken it because he does have a provider to give it to him. He also states that he was seen at patient was told that he start was abnormal but he was never given anything for it. He apparently also has a history of seizures and takes Dilantin for it. Apparently about a week ago he had a seizure and he injured his left ribs. Per patient has some pain in the area when he takes a deep breath but otherwise unremarkable. Per patient the pain is not severe and is 4 out of 10. Denies any chest pain otherwise. Has no allergies to medication. Has been here in the past for similar. He states compliant with his seizure medication. He states that he was recently increased on his seizure medication. He states that his symptoms are severe secondary to being out of his lithium. He denies any other medical issues at this time. Nothing seems to make his symptoms better at this time. PFSH Past Medical History Bipolar Disorder: Yes Anxiety: Yes Diminished Hearing: No Hypertension: Yes Musculoskeletal: Yes Neurologic: Yes Psychiatric: Yes (bipolar) Respiratory: No Schizophrenia: Yes Seizures: Yes (grand mal seizures) Tetanus Vaccination: < 5 Years Past Surgical History Surgical History: No Previous Surgery Body Medical Devices: Patient is non-compliant with meds, thoughts not rational Social History Alcohol Use: Yes (daily) Tobacco Use: Yes (2 ppd cigarettes) Substance Use: Yes (etoh and tobacco) Allergies-Medications (Allergen,Severity, Reaction): Coded Allergies: No Known Allergies (Unverified Adverse Reaction, Unknown, 09/13/17) Reported Meds & Prescriptions Reported Meds & Active Scripts Active [place] Carbonate 600 Mg Cap 600 Mg PO HS Reported Dilantin (Phenytoin Extended) 100 Mg Cap 200 Mg PO DAILYAC Dilantin (Phenytoin Extended) 100 Mg Cap 100 Mg PO NOON AN NIGHT Review of Systems Except as stated in HPI: all other systems reviewed are Neg Physical Exam Narrative GENERAL: SKIN: Warm and dry. HEAD: Atraumatic. Normocephalic. EYES: Pupils equal and round. No scleral icterus. No injection or drainage. ENT: No nasal bleeding or discharge. Mucous membranes pink and moist. Tongue is midline. No uvula deviation. NECK: Trachea midline. No JVD. CARDIOVASCULAR: Regular rate and rhythm. No murmurs, S3, S4. RESPIRATORY: No accessory muscle use. Clear to auscultation. Breath sounds equal bilaterally. GASTROINTESTINAL: Abdomen soft, non-tender, nondistended. Hepatic and splenic margins not palpable. MUSCULOSKELETAL: Extremities without clubbing, cyanosis, or edema. No obvious deformities. Full range of motion of the upper and lower extremities bilaterally. 2+ pulses bilaterally. NEUROLOGICAL: Awake and alert. No obvious cranial nerve deficits. Motor grossly within normal limits. Five out of 5 muscle strength in the arms and legs. Normal speech. PSYCHIATRIC: Appropriate mood and affect; insight and judgment normal. Data Data Last Documented VS Vital Signs Date Time Temp Pulse Resp B/P (MAP) Pulse Ox O2 Delivery O2 Flow Rate FiO2 09/13/17 19:03 97.9 91 18 188/91 (123) 96 Orders Orders Complete Blood Count With Diff (09/13/17 19:18) Comprehensive Metabolic Panel (09/13/17 19:18) Psych Screen (09/13/17 19:18) Drug Screen, Random Urine (09/13/17 19:18) Alcohol (Ethanol) (09/13/17 19:18) Salicylates (Aspirin) (09/13/17 19:18) Tylenol (Acetaminophen) (09/13/17 19:18) Phenytoin (Dilantin) (09/13/17 19:19) [place] (Li) (09/13/17 19:19) Thyroid Stimulating Hormone (09/13/17 20:09) Ribs, Uni (W/Exp Cxr-Min 3vw) (09/13/17 ) Labs Laboratory Tests Test 09/13/17 19:20 09/13/17 19:30 09/13/17 19:55 White Blood Count 6.6 TH/MM3 Red Blood Count 4.31 MIL/MM3 Hemoglobin 14.2 GM/DL Hematocrit 41.7 % Mean Corpuscular Volume 96.8 FL Mean Corpuscular Hemoglobin 33.0 PG Mean Corpuscular Hemoglobin Concent 34.1 % Red Cell Distribution Width 12.9 % Platelet Count 285 TH/MM3 Mean Platelet Volume 8.2 FL Neutrophils (%) (Auto) 56.3 % Lymphocytes (%) (Auto) 29.9 % Monocytes (%) (Auto) 11.0 % Eosinophils (%) (Auto) 2.2 % Basophils (%) (Auto) 0.6 % Neutrophils # (Auto) 3.7 TH/MM3 Lymphocytes # (Auto) 2.0 TH/MM3 Monocytes # (Auto) 0.7 TH/MM3 Eosinophils # (Auto) 0.1 TH/MM3 Basophils # (Auto) 0.0 TH/MM3 CBC Comment DIFF FINAL Differential Comment Salicylates Level 3.9 MG/DL Phenytoin (Dilantin) Level 6.0 MCG/ML [place] Level LESS THAN 0.1 MEQ/L MDM Medical Decision Making Medical Screen Exam Complete: Yes Emergency Medical Condition: Yes Medical Record Reviewed: Yes Interpretation(s) CBC & BMP Diagram 09/13/17 19:20 Total Protein 7.0, Albumin 3.9, Calcium Level 9.1, Alkaline Phosphatase 87, Aspartate Amino Transf (AST/SGOT) 18, Alanine Aminotransferase (ALT/SGPT) 19, Total Bilirubin 0.3 rib xray negative for acute disease, old fracture Differential Diagnosis Depression versus suicidal ideation versus anxiety versus adjustment disorder versus mood disorder versus bipolar disorder versus schizophrenia versus paranoid disorder versus psychosis versus substance abuse versus alcohol abuse versus alcohol induced psychosis versus homicidality addition versus cutting versus personality disorder versus rib pain Narrative Course 52-year-old male that presents to the ED for evaluation of Delacruz act. Patient was properly examined and was found to have signs and symptoms consistent with psychiatric illness. X-ray was done to any sign of rib fracture or pneumothorax. This was negative. Labs were drawn. Patient will be medically clear. Okay to be seen by psych. Mental health screening was discussed with the patient. Diagnosis Primary Impression: Bipolar disorder Qualified Codes: F31.32 - Bipolar disorder, current episode depressed, moderate Additional Impression: Rib pain on left side Richie Peraza Sep 13, 2017 20:50
[2017-09-13 20:58] VITALS: BP 152/86; PULSE 71; RESP 18; O2SAT 98
[2017-09-13] MEDS ORDERED: PHENYTOIN SODIUM 100 MG CAP PO ONE (23:15)
== END 2017-09-14 ==
LOC: NEPD 18:55 → NEPJ 09-14
DX: F31.32 Bipolar disorder, current episode depressed, moderate (principal); R07.81 Pleurodynia; I10 Essential (primary) hypertension; G40.409 Other generalized epilepsy and epileptic syndromes, not intractable, without status epilepticus; F20.9 Schizophrenia, unspecified; F17.210 Nicotine dependence, cigarettes, uncomplicated; Z79.899 Other long term (current) drug therapy; Z51.81 Encounter for therapeutic drug level monitoring
CPT/HCPCS: 71101; 80053; 80178; 80185; 80307; 84443; 85025; 99285

== ENCOUNTER 2018-04-30 20:51 | Emergency (ER) | payer OTHER ==
[~2018-04-30] VITALS: Ht 177.8 cm; Wt 90.0 kg
[~2018-04-30 20:51] MED LIST changes: -FOLI1TAB6 PO; -VITA100T54 PO
[2018-04-30] MEDS ORDERED: IOHEXOL 350 MG/ML 10 ML VIAL (for RAD DIAG) IVCONTRAST ONE (20:52)
[2018-04-30 21:34] VITALS: BP 136/68; PULSE 95; RESP 16; TEMP 98.2; O2SAT 99
[2018-04-30] MEDS ORDERED: methylPREDNISolone SOD SUCC 125 MG/2 ML VIAL IV PUSH ONE (21:45)
[2018-04-30] MEDS ORDERED: SODIUM CHLORIDE 0.9% FLUSH 10 ML FLUSH IVF PRN (21:45)
[2018-04-30 21:46] VITALS: RESP 22; O2SAT 97
--- NOTE | 2018-04-30 21:46 | PD ---
HPI Chief Complaint: Alcohol/Drug Intoxication Time Seen by Provider: 21:42 Travel History International Travel<30 days: No Contact w/Intl Traveler<30days: No Traveled to known affect area: No History of Present Illness HPI 52-year-old male presents complaining of dyspnea. Symptoms started 2 weeks ago. He reports dyspnea and cough, symptoms are moderate, aggravated by coughing with no relieving factors. Today particularly was having coughing and dyspnea and called 911. He was apparently placed under [place] act because he had consumed some alcoholic beverages earlier today. He is currently sober. He denies chest pain, abdominal pain, nausea or vomiting, fevers or chills. He does have a chronic cough, is worse over the past few weeks with productive yellow sputum. He reports that he was seen at an outside hospital 2 days ago where apparently a CT of the chest with contrast, potentially CT pulmonary angiogram, was performed but he describes an IV infiltration issue and they were wanting to repeat the test but he refused and instead left AMA. He denies any lower extremity edema. He denies any recent travel recent surgery. He smokes 2 packs per day. He reports that he has had this dyspnea in the past and believes that he probably has COPD though he has never been officially diagnosed with COPD. No other complaints at this time. PFSH Past Medical History Bipolar Disorder: Yes Anxiety: Yes Diminished Hearing: No Hypertension: Yes Musculoskeletal: Yes Neurologic: Yes Psychiatric: Yes (bipolar) Respiratory: No Schizophrenia: Yes Seizures: Yes (grand mal seizures) Tetanus Vaccination: Unknown Influenza Vaccination: No Past Surgical History Body Medical Devices: Patient is non-compliant with meds, thoughts not rational Social History Alcohol Use: Yes (daily) Tobacco Use: Yes (2 ppd cigarettes) Substance Use: Yes (etoh and tobacco) Allergies-Medications (Allergen,Severity, Reaction): Coded Allergies: No Known Allergies (Unverified Adverse Reaction, Unknown, 09/13/17) Reported Meds & Prescriptions Reported Meds & Active Scripts Active Proair Hfa 8.5 GM Inh (Albuterol Sulfate) 90 Mcg/Act Aer 2 Puff INH Q4-6H PRN 108 mcg/actuation Prednisone 20 Mg Tab 20 Mg PO BID 5 Days Azithromycin 250 Mg Tab 250 Mg PO DIRECTED Take 2 tabs (500 mg) on day 1 then 1 tab daily x 4 days. Seguin Carbonate 600 Mg Cap 600 Mg PO HS Reported Dilantin (Phenytoin Extended) 100 Mg Cap 200 Mg PO DAILYAC Dilantin (Phenytoin Extended) 100 Mg Cap 100 Mg PO NOON AN NIGHT Review of Systems Except as stated in HPI: all other systems reviewed are Neg Physical Exam Narrative GENERAL: Well-developed well-nourished male in no acute distress. Sober. Ambulating normally. SKIN: Warm and dry. HEAD: Atraumatic. Normocephalic. EYES: Pupils equal and round. No scleral icterus. No injection or drainage. ENT: No nasal bleeding or discharge. Mucous membranes pink and moist. NECK: Trachea midline. No JVD. CARDIOVASCULAR: Regular rate and rhythm. No murmur appreciated. RESPIRATORY: No accessory muscle use. Faint wheezing bilaterally. GASTROINTESTINAL: Abdomen soft, non-tender, nondistended. Hepatic and splenic margins not palpable. MUSCULOSKELETAL: No obvious deformities. No clubbing. No cyanosis. No edema. NEUROLOGICAL: Awake and alert. No obvious cranial nerve deficits. Motor grossly within normal limits. Normal speech. Data Data Last Documented VS Vital Signs Date Time Temp Pulse Resp B/P (MAP) Pulse Ox O2 Delivery O2 Flow Rate FiO2 04/30/18 21:46 97 Room Air 04/30/18 21:46 22 04/30/18 21:34 98.2 95 136/68 (90) Orders Orders Complete Blood Count With Diff (04/30/18 21:42) Comprehensive Metabolic Panel (04/30/18 21:42) B-Type Natriuretic Peptide (04/30/18 21:42) Act Partial Throm Time (Ptt) (04/30/18 21:42) Prothrombin Time / Inr (Pt) (04/30/18 21:42) Magnesium (Mg) (04/30/18 21:42) Ckmb (Isoenzyme) Profile (04/30/18 21:42) Troponin I (04/30/18 21:42) Iv Access Insert/Monitor (04/30/18 21:42) Electrocardiogram (04/30/18 21:42) Ecg Monitoring (04/30/18 21:42) Oximetry (04/30/18 21:42) Oxygen Administration (04/30/18 21:42) Chest, Single Ap (04/30/18 21:42) Ct Pulmonary Angiogram (04/30/18 21:42) Sodium Chloride 0.9% Flush (Ns Flush) (04/30/18 21:45) Methylprednisolone So Succ Inj (Solumedr (04/30/18 21:45) Albuterol-Ipratropium Neb (Duoneb Neb) (04/30/18 21:45) CKMB (04/30/18 21:55) CKMB% (04/30/18 21:55) Potassium, Serum (K) (04/30/18 23:02) Iohexol 350 Inj (Omnipaque 350 Inj) (04/30/18 20:52) Ed Discharge Order (04/30/18 23:50) Labs Laboratory Tests Test 04/30/18 21:55 04/30/18 23:14 White Blood Count 4.9 TH/MM3 Red Blood Count 4.92 MIL/MM3 Hemoglobin 16.7 GM/DL Hematocrit 48.5 % Mean Corpuscular Volume 98.7 FL Mean Corpuscular Hemoglobin 34.0 PG Mean Corpuscular Hemoglobin Concent 34.4 % Red Cell Distribution Width 13.3 % Platelet Count 314 TH/MM3 Mean Platelet Volume 8.1 FL Neutrophils (%) (Auto) 45.6 % Lymphocytes (%) (Auto) 38.7 % Monocytes (%) (Auto) 14.5 % Eosinophils (%) (Auto) 0.7 % Basophils (%) (Auto) 0.5 % Neutrophils # (Auto) 2.2 TH/MM3 Lymphocytes # (Auto) 1.9 TH/MM3 Monocytes # (Auto) 0.7 TH/MM3 Eosinophils # (Auto) 0.0 TH/MM3 Basophils # (Auto) 0.0 TH/MM3 CBC Comment DIFF FINAL Differential Comment Prothrombin Time 10.9 SEC Prothromb Time International Ratio 1.1 RATIO Activated Partial Thromboplast Time 24.6 SEC Blood Urea Nitrogen 6 MG/DL Creatinine 1.21 MG/DL Random Glucose 83 MG/DL Total Protein 7.9 GM/DL Albumin 3.5 GM/DL Calcium Level 8.3 MG/DL Magnesium Level 1.9 MG/DL Alkaline Phosphatase 163 U/L Aspartate Amino Transf (AST/SGOT) 133 U/L Alanine Aminotransferase (ALT/SGPT) 83 U/L Total Bilirubin 0.7 MG/DL Sodium Level 137 MEQ/L Potassium Level 5.6 MEQ/L 3.6 MEQ/L Chloride Level 101 MEQ/L Carbon Dioxide Level 25.6 MEQ/L Anion Gap 10 MEQ/L Estimat Glomerular Filtration Rate 62 ML/MIN Total Creatine Kinase 187 U/L Creatine Kinase MB 1.5 NG/ML Troponin I LESS THAN 0.02 NG/ML B-Type Natriuretic Peptide 23 PG/ML [facility] Medical Decision Making Medical Screen Exam Complete: Yes Emergency Medical Condition: Yes Medical Record Reviewed: Yes Differential Diagnosis COPD, bronchitis, pneumonia, pleural effusion, pulmonary embolism, pericardial effusion, acute coronary syndrome Narrative Course The patient was placed on ECG monitoring pulse oximetry. 12 he was obtained revealing sinus rhythm with a rate of 93.. Lab work, chest x-ray, CT pulmonary angiogram ordered. The patient will be given duo nebs, Solu-Medrol. Chest x-ray reveals no acute normalities. CBC is unremarkable. CMP reveals a potassium of 5.6 but it is markedly hemolyzed and therefore repeat potassium i was sent to lab. AST is 133, ALT 83. Cardiac enzymes are normal. BNP is normal. Repeat potassium is normal. CT pulmonary angiogram is negative. At this point time the plan is to discharge the patient with azithromycin, prednisone and albuterol inhaler. Diagnosis Primary Impression: Bronchitis Referrals: [facility] Additional Instructions: Medication as prescribed. Stay well hydrated and well-nourished. Avoid tobacco use. But Manish Driver to discuss excessive alcohol use. Return for any emergent medical conditions. Med/Other Pt SpecificInfo: Prescription(s) given Scripts Albuterol 8.5 GM Inh (Proair Hfa 8.5 GM Inh) 90 Mcg/Act Aer 2 PUFF INH Q4-6H Y for SHORTNESS OF BREATH, #1 INHALER 0 Refills 108 mcg/actuation Prov: Vasiliy Dong MD 04/30/18 Prednisone (Prednisone) 20 Mg Tab 20 MG PO BID for 5 Days, #10 TAB 0 Refills Prov: Vasiliy Dong MD 04/30/18 Azithromycin (Azithromycin) 250 Mg Tab 250 MG PO DIRECTED for Infection, #6 TAB 0 Refills Take 2 tabs (500 mg) on day 1 then 1 tab daily x 4 days. Prov: Vasiliy Dong MD 04/30/18 Disposition: 01 DISCHARGE HOME Condition: Stable Jose Roberto Leon Apr 30, 2018 21:46
[2018-04-30 22:05] LABS: AUTOMATED NEUTROPHIL # 2.2 TH/MM3 (1.8-7.7); BASOPHIL % 0.5 % (0.0-2.0); EOSINOPHIL % 0.7 % (0.0-4.0); HEMATOCRIT 48.5 % (39.0-51.0); HEMOGLOBIN 16.7 GM/DL (13.0-17.0); LYMPH % 38.7 % (9.0-44.0); LYMPHOCYTE # 1.9 TH/MM3 (1.0-4.8); MEAN CELL VOLUME 98.7 FL (80.0-100.0); MEAN CORPUSCULAR HGB CONC 34.4 % (32.0-36.0); MEAN PLATELET VOLUME 8.1 FL (7.0-11.0); MONO % 14.5 % (0.0-8.0); MONOCYTE # 0.7 TH/MM3 (0-0.9); NEUT % 45.6 % (16.0-70.0); PLATELET COUNT 314 TH/MM3 (150-450); RED BLOOD COUNT 4.92 MIL/MM3 (4.50-5.90); RED CELL DISTRIBUTION WIDTH 13.3 % (11.6-17.2); WHITE BLOOD COUNT 4.9 TH/MM3 (4.0-11.0)
[2018-04-30 22:20] LABS: INTERNATIONAL NORMALIZED RATIO 1.1 RATIO; PROTHROMBIN TIME - PATIENT 10.9 SEC (9.8-11.6)
--- NOTE | 2018-04-30 22:28 | RADRPT ---
EXAM DATE: 04/30/2018 10:18 PM EDT AGE/SEX: 52 years / Male INDICATIONS: Shortness of breath. CLINICAL DATA: This is the patient's initial encounter. Patient reports that signs and symptoms have been present for 1 day and indicates a pain score of 0/10. MEDICAL/SURGICAL HISTORY: Chronic obstructive pulmonary disease. None. COMPARISON: No prior exams available for comparison. FINDINGS: A single AP view of the chest demonstrates the lungs to be symmetrically aerated without evidence of mass, infiltrate or effusion. The cardiomediastinal contours are unremarkable. Osseous structures a re intact. CONCLUSION: No active disease. Electronically signed by: Winston Serra MD 04/30/2018 10:27 PM EDT
[2018-04-30 22:42] LABS: ALBUMIN 3.5 GM/DL (3.4-5.0); ALKALINE PHOSPHATASE 163 U/L (45-117); ALT (GPT) 83 U/L (12-78); BICARBONATE 25.6 MEQ/L (21.0-32.0); BLOOD UREA NITROGEN 6 MG/DL (7-18); CALCIUM 8.3 MG/DL (8.5-10.1); CHLORIDE 101 MEQ/L (98-107); CREATININE 1.21 MG/DL (0.60-1.30); GLOMERULAR FILTRATION RATE 62 ML/MIN (>89); GLUCOSE,RANDOM 83 MG/DL (74-106); MAGNESIUM 1.9 MG/DL (1.5-2.5); SODIUM (NA) 137 MEQ/L (136-145); TOTAL BILIRUBIN ADULT 0.7 MG/DL (0.2-1.0); TOTAL PROTEIN 7.9 GM/DL (6.4-8.2); TROPONIN I LESS THAN 0.02 NG/ML (0.02-0.05)
[2018-04-30 22:45] LABS: AST (GOT) 133 U/L (15-37)
[2018-04-30] MEDS: RESP: ALBUTEROL 2.5 MG/IPRATROPIUM 0.5 MG NEB (SCH) INH (22:50)
--- NOTE | 2018-04-30 23:43 | RADRPT ---
EXAM DATE: 04/30/2018 11:32 PM EDT AGE/SEX: 52 years / Male INDICATIONS: Dyspnea. CLINICAL DATA: This is the patient's initial encounter. Patient reports that signs and symptoms have been present for 1 day and indicates a pain score of 0/10. MEDICAL/SURGICAL HISTORY: Cardiovascular disease. Hypertension. Substance abuse . RADIATION DOSE: 17.57 CTDI (mGy) COMPARISON: No prior exams available for comparison. TECHNIQUE: Volumetric scanning was performed using a multi-row detector CT scanner during bolus infu nidia of 80 ml Omnipaque 350 (iohexol) nonionic water-soluble contrast as a single exam dose. The lorraine a was post processed with a variety of visualization algorithms including full volume maximum intensi ty projection and sliding thin slab reformation. Using automated exposure control and adjustment of the mA and/or kV according to patient size, radiation dose was kept as low as reasonably achievable t o obtain optimal diagnostic quality images. FINDINGS: Pulmonary Arteries: No filling defects are seen in the pulmonary arteries out to the subsegmental ve ssels. The left and right pulmonary arteries are normal in diameter. Lung: No infiltrates seen. Effusion: None. Mediastinum: No evidence of mediastinal or hilar adenopathy. Other: The axilla is unremarkable. CONCLUSION: 1. This study is negative for pulmonary embolism. Electronically signed by: Seth Pemberton MD 04/30/2018 11:42 PM EDT
[2018-04-30] MEDS ORDERED: ALBUAER3 INH (23:46)
[2018-04-30] MEDS ORDERED: AZIT250T3 PO (23:46)
[2018-04-30] MEDS ORDERED: PRED20 PO (23:46)
--- NOTE | 2018-05-01 23:04 | EKG ---
Date Performed: 04/30/2018 Time Performed: 21:51:41 PTAGE: 52 years EKG: Sinus rhythm NORMAL ECG PREVIOUS TRACING : 02/04/2015 00.32 DOCTOR: Antionette White Interpretating Date/Time 05/01/2018 22:56:51
== END 2018-05-01 | disposition home or self-care (01) ==
LOC: NEPD 20:51
DX: J40 Bronchitis, not specified as acute or chronic (principal); R05 Cough; R06.2 Wheezing; R06.02 Shortness of breath; F31.9 Bipolar disorder, unspecified; F41.9 Anxiety disorder, unspecified; F20.9 Schizophrenia, unspecified; I10 Essential (primary) hypertension; G40.409 Other generalized epilepsy and epileptic syndromes, not intractable, without status epilepticus; F17.210 Nicotine dependence, cigarettes, uncomplicated; Z79.899 Other long term (current) drug therapy
CPT/HCPCS: 71045; 71275; 80053; 82550; 82552; 83735; 83880; 84132; 84484; 85025; 85610; 85730; 93005; 94640; 94664; 96374; 99285; J2930; Q9967